=== PATIENT | male | born 1945 | race Caucasian/White ===

== ENCOUNTER 2016-12-20 11:18 | Day surgery (SDC) | payer OTHER, MEDICARE ==
[~2016-12-20] VITALS: Ht 170.2 cm; Wt 55.3 kg
[~2016-12-20 11:18] MED LIST: ARMD EYE SUPPORT PO; FISH OIL 1,0001 EAC7 PO; FOLIC ACID0.4 MG PO; HUMALOG; HUMALOG100 UNIT/1 SC; LANTUS 10100 UNITS/ SC; LEVAQUIN750 MG PO; LO-DOSE ASPIRIN81 M1 PO; LOSARTAN POTASS50 MG PO; LOTENSIN10 MG PO; LOVASTATIN10 MG PO; PERCOCET 5/31 TABLET PO; PLETAL100 MG PO; TOPROL XL25 MG PO; TYLENOL EXTRA500 MG PO; VALIUM2 MG PO; VITAMIN B 12 PO; VITAMIN D1000 INTUN PO
[2016-12-20 12:04] LABS: HEMATOCRIT 33.1 % (38.0-50.0); MCV 97.6 FL (86-99)
[2016-12-20 12:18] VITALS: BP 184/79
[2016-12-20 12:30] LABS: ANION GAP 8 MEQ/L (2-14); CHLORIDE 103 MEQ/L (99-109); POTASSIUM 4.8 MEQ/L (3.7-5.4); SAMPLE HEMOLYSIS CHECK 0; SAMPLE ICTERIC CHECK 0; SAMPLE LIPEMIA CHECK 0; SODIUM 139 MEQ/L (136-147)
[2016-12-20 12:36] LABS: GFR ESTIMATE (CALCULATED) > 59 mL/min/; GLUCOSE 256 mg/dL (70-99); UREA NITROGEN (BUN) 27 mg/dL (9-23)
[2016-12-20 13:27] LABS: METH RESISTANT S AUREUS PCR NEGATIVE (NEGATIVE); PROBE CHECK PASS; SPECIMEN PROCESSING CONTROL PASS
[2016-12-20 16:43] LABS: POINT-OF-CARE METER ID UU13113675; POINT-OF-CARE USER ID ADMKMM76
[2016-12-20] MEDS ORDERED: NORCO 5/3251 TABLET PO (17:00)
[2016-12-20 17:47] VITALS: BP 184/88
[2016-12-20 19:29] VITALS: BP 186/82
== END 2016-12-20 19:30 | disposition home or self-care (01) ==
LOC: SDC 11:18
PROVIDERS: Surgery
PROC: 0Y6Q0Z0 Detachment at Left 1st Toe, Complete, Open Approach (ICD-10-PCS; principal; 2016-12-20)
DX: E11.52 Type 2 diabetes mellitus with diabetic peripheral angiopathy with gangrene (principal); E11.621 Type 2 diabetes mellitus with foot ulcer; L97.523 Non-pressure chronic ulcer of other part of left foot with necrosis of muscle; I73.9 Peripheral vascular disease, unspecified; J45.909 Unspecified asthma, uncomplicated; I65.29 Occlusion and stenosis of unspecified carotid artery; I25.10 Atherosclerotic heart disease of native coronary artery without angina pectoris; Z95.1 Presence of aortocoronary bypass graft; Z89.511 Acquired absence of right leg below knee; F41.1 Generalized anxiety disorder; Z79.4 Long term (current) use of insulin; Z79.82 Long term (current) use of aspirin; Z91.09 Other allergy status, other than to drugs and biological substances; Z88.2 Allergy status to sulfonamides; Z82.49 Family history of ischemic heart disease and other diseases of the circulatory system; Z83.3 Family history of diabetes mellitus; Z80.6 Family history of leukemia
CPT/HCPCS: 80048; 82948; 85014; 85018; 87641; 88305; 88311; 93005; J3010; S0020